=== PATIENT | female | born 1975 | race Caucasian/White ===

== ENCOUNTER 2018-09-16 20:26 | Emergency (ER) | payer MEDICARE, OTHER, SELFPAY ==
[2018-09-16 20:30] VITALS: BP 126/84; PULSE 79; RESP 12; TEMP 36.4; O2SAT 97
--- NOTE | 2018-09-16 20:40 | DI.RAD.S_ITS ---
PROCEDURE: XR CHEST 1V INDICATIONS: chest pain TECHNIQUE: One view of the chest was acquired. COMPARISON: [facility], , CHEST 1 VIEW, 04/29/2016, 17:58. FINDINGS: Surgical changes and devices: Right chest port catheter tip projects over the superior vena cava. Multiple monitoring leads project over the chest. Lungs and pleura: No pleural effusions or pneumothorax. Lungs are clear. Mediastinum: Mediastinal contours appear normal. Heart size is normal. Bones and chest wall: No suspicious bony lesions. Overlying soft tissues appear unremarkable. IMPRESSION: No acute cardiopulmonary disease. Dictated by: Hilton Ramos M.D. on 09/16/2018 at 21:21 Approved by: Hilton Ramos M.D. on 09/16/2018 at 21:25
[2018-09-16 21:00] VITALS: BP 125/94; PULSE 79; RESP 18
--- NOTE | 2018-09-16 21:01 | ED.CHESTPAIN ---
HPI - Chest Pain General Chief Complaint: Chest Pain Stated Complaint: CHEST PAIN, SHORT OF BREATH Time Seen by Provider: 09/16/18 21:01 Source: patient Mode of arrival: ambulatory Limitations: no limitations History of Present Illness HPI narrative: The patient presents with left anterior chest pain. The pain is been present for 2 days. There is no radiation of pain. She has no associated dyspnea. She developed nausea and vomiting with a migraine headache 2 days ago. The chest pain started after the vomiting started. She has vomited once today. The abdominal discomfort and headache are ongoing. She gets these headaches on a recurring basis. Her headache symptoms are not atypical for her. The chest pain is new. She generally treats herself at home for the headaches with Tylenol or ibuprofen. She is also undergoing ECT therapy for PTSD. There is no headache associated with this treatment. She has not been experiencing fever or chills. She has no diarrhea with the abdominal symptoms. She has no cardiac risk factors of hyperlipidemia or diabetes. She has a history of elevated blood pressure readings, but is not being treated for hypertension. She is not a cigarette smoker. Related Data Home Medications Medication Instructions Recorded Confirmed mirtazapine 15 mg PO #0 10/09/16 Previous Rx's Medication Instructions Recorded ondansetron [Zofran ODT] 4 mg SUBLINGUAL Q6HP PRN #6 odt 10/09/16 zolpidem [Ambien] 10 mg PO HS PRN #7 tab 10/03/17 ondansetron 4 mg PO Q4H PRN #20 tab 09/16/18 Allergies Allergy/AdvReac Type Severity Reaction Status Date / Time influenza A (H1N1) virus Allergy Severe ANAPHYLAXIS Verified 09/16/18 20:37 vaccine m-mathew-split 2008 [From influenza A (H1N1)] ketorolac Allergy Mild SOB, RASH Verified 09/16/18 20:37 metoclopramide Allergy Mild SOB, RASH Verified 09/16/18 20:37 feathers [FEATHERS] Allergy Unknown Verified 09/16/18 20:37 Review of Systems Review of Systems All systems reviewed & are unremarkable except as noted in HPI and below Constitutional Denies chills, Denies fever(s), Reports headache(s), Denies lethargy, Denies night sweats and Denies weakness Eyes Denies change in vision, Denies eye discharge, Denies irritation, Denies loss of vision and Reports photophobia ENT Ears, Nose, Mouth, and Throat: Denies vertigo, Denies dizziness and Reports headache(s) Cardiovascular Reports chest pain (Left anterior chest discomfort), Denies irregular heart rhythm, Denies lightheadedness, Denies palpitations, Denies dyspnea, Denies dyspnea on exertion and Denies orthopnea Respiratory Denies cough, Denies dyspnea, Denies dyspnea on exertion and Denies wheezing Gastrointestinal Gastrointestinal: Denies abdominal pain, Denies change in bowel habits, Denies diarrhea, Reports nausea and Reports vomiting Genitourinary Denies dysuria and Reports other (Her LMP was 2 weeks ago and was normal.) Musculoskeletal Denies back pain, Denies myalgias, Denies muscle weakness, Denies numbness and Denies tingling Integumentary/Breasts Denies erythema, Denies rash and Denies wounds Neurologic Denies confusion, Denies vertigo, Denies dizziness, Reports headache(s), Denies focal weakness, Denies loss of vision, Denies numbness, Denies tingling and Denies weakness Psychiatric Denies confusion Endocrine Denies palpitations Allergic/Immunologic Denies wheezing [facility] Social History Smoking Status: Never smoker Exam Initial Vital Signs Initial Vital Signs: Vital Signs Temperature 97.5 F L 09/16/18 20:30 Pulse Rate 79 09/16/18 20:30 Respiratory Rate 12 09/16/18 20:30 Blood Pressure 126/84 09/16/18 20:30 Pulse Oximetry 97 09/16/18 20:30 Const General: cooperative, healthy appearing, comfortable and well developed Nutritional Appearance: well nourished Orientation: alert, awake, oriented x3 and not confused [facility] Head: normal to inspection, normocephalic and atraumatic Ears: external ears normal and TM's normal bilaterally Nose: external nose normal and No nasal discharge Face and sinus: sinuses nontender, face symmetric, no sinus tenderness and No dry mucous membranes Mouth: oral mucosae normal and moist mucous membranes Teeth and gingiva: dentition normal Throat: tonsils normal and uvula midline Eyes General: appearance normal, both eyes and all related structures Alignment and Position: other (No photophobia at this moment) Eyelids: eyelids normal Conjunctivae: conjunctivae normal Sclera: sclerae normal Pupils: PERRL EOM: EOM intact bilaterally Neck Neck: full ROM and no meningeal signs Chest Chest: normal inspection of the chest and tenderness (In the left upper chest wall, consistent with her chief complaint of chest pain) Resp Effort & Inspection: normal respiratory effort and able to speak in complete sentences Auscultation: clear to auscultation bilaterally, no rales, no rhonchi and no wheezes Cardio Rate: regular rate Rhythm: regular rhythm Heart Sounds: no click, no gallops, no murmurs and no rubs Pulses: normal peripheral pulses GI Inspection: non-distended Palpation: soft, no hepatosplenomegaly, No guarding, No pulsatile mass and tender (Mild epigastric discomfort with palpation) Auscultation: normal bowel sounds Back/Spine/Pelvis Back: No CVA tenderness Skin General: no rashes or lesions noted Neuro General: alert, oriented x3, gait normal and no focal motor deficits Speech: speech normal Extrem General: full ROM, no pedal edema and no calf tenderness Psych Appearance: well kempt Mental Status: mental status grossly normal Attitude: cooperative Thought Content: normal and suicidality Judgment: judgment good Course Orders Ordered: ED Orders 09/16/18 20:40 XR chest 1V Stat EKG-12 Lead Stat 09/16/18 21:06 Complete Blood Count AUTO DIFF Stat Comprehensive Metabolic Panel Stat Lipase Stat Partial Thromboplastin Time Stat Prothrombin Time INR Stat Troponin & CK Cardiac Panel Stat Sodium Chloride (Normal Saline 0.9%) 1,000 mls @ 1,000 mls/hr IV BOLUS PRN PRN Reason: Fluid replacement Last Admin: 09/16/18 21:38 Dose: 1,000 mls/hr Discontinued Medications Hydromorphone HCl (Dilaudid) 1 mg IV NOW ONE Stop: 09/16/18 21:12 Last Admin: 09/16/18 21:39 Dose: 1 mg Ondansetron HCl (Zofran) 4 mg IV NOW ONE Stop: 09/16/18 21:12 Last Admin: 09/16/18 21:39 Dose: 4 mg Ondansetron HCl (Zofran Odt Prepack) 1 bottle MISC SEEINSTR ONE Stop: 09/16/18 22:37 Last Admin: 09/16/18 22:45 Dose: 1 bottle Vital Signs - 8 hr 09/16/18 20:30 09/16/18 21:00 09/16/18 21:30 Temperature 97.5 F L Pulse Rate 79 79 68 Respiratory Rate 12 18 19 Blood Pressure 126/84 Blood Pressure [Left Arm] 125/94 H 111/71 Pulse Oximetry 97 95 MDM - Chest Pain Medical Records Data Attestation: I reviewed the patient's medical records. Lab Data Attestation: I reviewed the patient's lab results. Result diagrams: 09/16/18 21:06 09/16/18 21:06 Lab Results 09/16/18 09/16/18 09/16/18 Range/Units 21: 21:06 21:06 WBC 6.0 (4.5-11.0) X10^3/uL RBC 4.24 (4.0-5.2) X10^6/uL Hgb 12.3 (12.0-16.0) g/dL Hct 36.1 (36-46) % MCV 85.1 (80-100) fL MCH 28.9 (26-34) PG MCHC 34.0 (30-36) % RDW 13.4 (11.6-14.8) % Plt Count 216 (150-400) X10^3/uL Neut % (Auto) 53.3 (50-75) % Lymph % (Auto) 35.7 (25-40) % [place] % (Auto) 8.2 (3-14) % Eos % (Auto) 1.6 L (2-4) % Baso % (Auto) 1.2 (0-2) % Neut # (Auto) 3200 (2195-5446) /uL PT 11.1 (10.1-12.7) SECONDS INR 1.0 (0.9-1.3) APTT 59 H (26.4-36.2) SECONDS Sodium 143 (137-145) mmol/L Potassium 3.4 (3.4-5.1) mmol/L Chloride 104 (98-107) mmol/L Carbon Dioxide 24 (22-32) mmol/L BUN 4 L (7-17) mg/dL Creatinine 0.70 (0.52-1.04) mg/dL Estimated GFR > 60.0 (>60) mL/min BUN/Creatinine Ratio 5.7 L (6-22) Glucose 103 H (70-100) mg/dL Calcium 9.1 (8.4-10.2) mg/dL Total Bilirubin 0.5 (0.2-1.3) mg/dL AST 32 (14-36) IU/L ALT 43 (9-52) IU/L Alkaline Phosphatase 64 (38-126) U/L Total Creatine Kinase 48 (30-135) U/L CK-MB (CK-2) TNP CK-MB (CK-2) Rel Index TNP Troponin I < 0.012 (0.01-0.034) ng/mL Total Protein 7.6 (6.3-8.2) g/dL Albumin 4.5 (3.5-5.0) g/dL Globulin 3.1 (1.7-4.1) g/dL Albumin/Globulin Ratio 1.5 (1.0-2.8) Lipase 41 (23-300) U/L Imaging Data Chest x-ray: Radiologist's impression: No acute cardiopulmonary process identified. ECG Data Attestation: I personally reviewed and interpreted this ECG as follows: (Normal sinus rhythm. No ectopy. Normal intervals. No acute ST or T-wave changes. Normal study.) MDM Narrative Medical decision making narrative: The patient still complains of slight headache, but chest discomfort and GI symptoms have resolved. Overall she is markedly improved. There is no evidence of cardiopulmonary disease. I suspect she has strained a chest wall muscle from the emesis that have been occurring over the last couple days. Discharge Plan Departure Patient Disposition: Home Clinical Impression: Migraine headache Instructions: Migraine -- Adult Activity Restrictions/Additional Instructions: The Motrin every 6 hr as needed for headache pain. Zofran every 4 hr as needed for nausea. Apply hot compresses to her neck to help with the headache discomfort. Recheck with your doctor within next 48 hr or return here if necessary if the headache does not resolve. Prescriptions: New ondansetron 4 mg tablet,disintegrating 4 mg PO Q4H PRN (Reason: nausea and vomiting) Qty: 20 RF: 0 No Action mirtazapine 15 MG tablet 15 mg PO Qty: 0 RF: 0 ondansetron [Zofran ODT] 4 MG tablet,disintegrating 4 mg Sublingual Q6HP PRNQty: 6 RF: 0 zolpidem [Ambien] 10 MG tablet 10 mg PO HS PRNQty: 7 RF: 0
[2018-09-16 21:12] LABS: Add Manual Diff / Slide Review NO; Basophils Percent Auto 1.2 % (0-2); Eosinophils Percent Auto 1.6 % (2-4); Hematocrit 36.1 % (36-46); Hemoglobin 12.3 g/dL (12.0-16.0); Lymphocytes Percent Auto 35.7 % (25-40); Mean Corpuscular Hemoglobin 28.9 PG (26-34); Mean Corpuscular Volume 85.1 fL (80-100); Monocytes Percent Auto 8.2 % (3-14); Neutrophils Absolute Auto 3200 /uL (3000-5900); Neutrophils Percent Auto 53.3 % (50-75); Platelet Count 216 X10^3/uL (150-400); Red Blood Cell Count 4.24 X10^6/uL (4.0-5.2); Red Cell Distribution Width 13.4 % (11.6-14.8)
[2018-09-16 21:16] LABS: Prothrombin Time 11.1 SECONDS (10.1-12.7)
[2018-09-16 21:19] LABS: PTT Partial Thromboplastin Tim 59 SECONDS (26.4-36.2)
[2018-09-16 21:20] LABS: Alanine Aminotransferase 43 IU/L (9-52); Albumin 4.5 g/dL (3.5-5.0); Albumin Globulin Ratio 1.5 (1.0-2.8); Alkaline Phosphatase 64 U/L (38-126); Aspartate Aminotransferase 32 IU/L (14-36); BUN Creatinine Ratio 5.7 (6-22); Bilirubin Total 0.5 mg/dL (0.2-1.3); Blood Urea Nitrogen 4 mg/dL (7-17); Calcium 9.1 mg/dL (8.4-10.2); Carbon Dioxide 24 mmol/L (22-32); Chloride 104 mmol/L (98-107); Creatine Kinase 48 U/L (30-135); Estimated Glomerular Filt Rate > 60.0 mL/min (>60); Globulin 3.1 g/dL (1.7-4.1); Glucose 103 mg/dL (70-100); HEMOLYSIS < 15 (0-50); Lipase 41 U/L (23-300); Potassium 3.4 mmol/L (3.4-5.1); Sodium 143 mmol/L (137-145); Total Protein 7.6 g/dL (6.3-8.2)
[2018-09-16 21:30] VITALS: BP 111/71; PULSE 68; RESP 19; O2SAT 95
[2018-09-16 21:32] LABS: Troponin I < 0.012 ng/mL (0.01-0.034)
[2018-09-16] MEDS: SODIUM CHLORIDE 0.9% 1,000 ML 1000 ML IV (21:38)
[2018-09-16] MEDS: ONDANSETRON 4 MG/2 ML INJ IV (21:39)
[2018-09-16] MEDS: HYDROMORPHONE 1 MG INJ IV (21:39)
--- NOTE | 2018-09-16 22:09 | PC.NURSE ---
patient also reports a headache for x3 days. provider aware.
[2018-09-16] MEDS: ONDANSETRON 4 MG ODT PREPACK 1 BOTTLE MISC (22:45)
[2018-09-16 22:51] VITALS: BP 133/78; PULSE 64; RESP 16; O2SAT 99
== END 2018-09-16 22:51 | disposition home or self-care (01) ==
PROVIDERS: Emergency Provider Emergency Medicine; Family Provider Family Medicine; PCP Family Medicine
DX: R07.89 Other chest pain (principal)
CPT/HCPCS: 36591; 71045; 80053; 82550; 83690; 84484; 85025; 85610; 85730; 93005; 96361; 96374; 96375; 99283; 99285; J1170; J2405

== ENCOUNTER 2024-11-13 15:34 | Emergency (ER) | payer OTHER, SELFPAY ==
[2024-11-13 15:37] VITALS: BP 165/90; PULSE 94; RESP 16; TEMP 36.4; O2SAT 99; BMI 39.6
[2024-11-13] MEDS: ONDANSETRON 4 MG ODT SL (15:46)
[2024-11-13 18:22] LABS: Bacteria Urine Occasional (0-1); Culture Indicated Urine Cult Not Indicated; RBC Urine 30-100/HPF (0-5/HPF); Squamous Epithelial Cell Urine 5-10 /HPF (0-5/HPF); Urine Volume 10mL (spun); WBC Urine 0-1/HPF (0-5/HPF)
[2024-11-13 22:10] VITALS: BP 156/90; PULSE 88; RESP 18; O2SAT 100
[2024-11-13 23:43] VITALS: PULSE 74; O2SAT 100
[2024-11-13 23:44] VITALS: BP 175/105; PULSE 75; RESP 20; O2SAT 100
--- NOTE | 2024-11-13 23:51 | ED_ITS ---
HPI - Back Pain/Injury General Chief Complaint: Back Pain/Injury Stated Complaint: lower back px radiating down legs, migraine Time Seen by Provider: 11/13/24 23:51 Source: patient History of Present Illness HPI Narrative: 49-year-old female with history of atrial fibrillation on chronic anticoagulation, prior low back pain problems, no low back surgeries, no low back steroid injections, complains of left low back pain and left gluteal pain radiating to the left posterior leg for the last 2 days. Able to ambulate but is painful to move her trunk and bend over. She does not have any numbness or tingling to the perineal perirectal region. She denies incontinence of urine and stool. She does not take anti-inflammatory medications due to chronic anticoagulation. She is taken cyclobenzaprine in the past but does not have a current supply. Tylenol not helping her pain symptoms. Related Data Home Medications Medication Instructions Recorded Confirmed mirtazapine 15 mg tablet 15 mg PO ##0 10/09/16 Previous Rx's Medication Instructions Recorded ondansetron 4 mg disintegrating 4 mg sublingual Q6HP PRN ##6 10/09/16 tablet (Zofran ODT) zolpidem 10 mg tablet (Ambien) 10 mg PO HS PRN #7 tabs 10/03/17 ondansetron 4 mg disintegrating 4 mg PO Q4H PRN nausea and 09/16/18 tablet vomiting #20 tabs cyclobenzaprine 10 mg tablet 10 mg PO TID #14 tabs 11/14/24 hydrocodone 5 mg-acetaminophen 325 1 tab PO Q6H PRN pain #14 tabs 11/14/24 mg tablet Allergies Allergy/AdvReac Type Severity Reaction Status Date / Time influenza A (H1N1) virus Allergy Severe ANAPHYLAXIS Verified 09/16/18 20:37 vaccine m-mathew-split 2008 [From influenza A (H1N1)] ketorolac Allergy Mild SOB, RASH Verified 09/16/18 20:37 metoclopramide Allergy Mild SOB, RASH Verified 09/16/18 20:37 feathers [FEATHERS] Allergy Unknown Verified 09/16/18 20:37 Patient History Social History Smoking Status: Never smoker Smoking Status: Never smoker alcohol intake frequency: 0-2 drinks per day Exam Narrative Exam Narrative: GENERAL: Well-developed patient, in mild distress. HEAD: Atraumatic. Normocephalic. EYES: Pupils equal round and reactive. Extraocular motions intact. No scleral icterus. No injection or drainage. ENT: Nose without bleeding, purulent drainage. Throat without erythema, tonsillar hypertrophy or exudate. Airway patent. NECK: Trachea midline. Non tender CARDIOVASCULAR: Regular rate and rhythm without murmurs, gallops, or rubs. RESPIRATORY: Clear to auscultation. Breath sounds equal bilaterally. No wheezes, rales, or rhonchi. GASTROINTESTINAL: Abdomen soft, non-tender, nondistended. EXTREMITIES: No edema or joint tenderness. BACK: Nontender without deformity or crepitance. No flank tenderness. Lumbar paraspinal low muscular tenderness, no midline tenderness. NEURO: AOx3. Motor functions grossly nonfocal. Straight leg raise 45? left leg, with increased buttock area discomfort. Straight leg raise 60? right leg without right-sided discomfort, some left-sided discomfort SKIN: No rash or erythema of visible areas Initial Vital Signs Initial Vital Signs: Vital Signs Temperature 97.6 F 11/13/24 15:37 Pulse Rate 94 H 11/13/24 15:37 Respiratory Rate 16 11/13/24 15:37 Blood Pressure 165/90 H 11/13/24 15:37 Pulse Oximetry 99 11/13/24 15:37 Oxygen Delivery Method Room Air 11/13/24 15:37 Course Orders Ordered: Discontinued Medications Hydrocodone Bitart/Acetaminophen (Hydrocodone/Acet 5/325 Prepack) 1 bottle MISC DIRECTED ONE Stop: 11/14/24 02:26 Last Admin: 11/14/24 02:35 Dose: 1 bottle Documented By: CHYNA Cyclobenzaprine HCl (Cyclobenzaprine 10 Mg Tablet) 10 mg PO NOW ONE Stop: 11/14/24 00:49 Last Admin: 11/14/24 00:59 Dose: 10 mg Documented By: CHYNA Cyclobenzaprine HCl (Cyclobenzaprine 10 Mg Prepack) 1 bottle MISC DIRECTED ONE Stop: 11/14/24 02:26 Last Admin: 11/14/24 02:35 Dose: 1 bottle Documented By: CHYNA Hydromorphone HCl (Hydromorphone 1 Mg Inj) 1 mg IM NOW ONE Stop: 11/14/24 00:49 Last Admin: 11/14/24 01:00 Dose: 1 mg Documented By: CHYNA Ketorolac Tromethamine (Ketorolac 30 Mg/Ml Vial) 30 mg IM NOW ONE Stop: 11/13/24 23:52 Last Admin: 11/14/24 00:14 Dose: Not Given Documented By: CHYNA Ondansetron HCl (Ondansetron 4 Mg Odt) 4 mg SL NOW ONE Stop: 11/13/24 15:44 Last Admin: 11/13/24 15:46 Dose: 4 mg Documented By: ASTRID Vital Signs Vital signs: Vital Signs - 8 hr 11/14/24 00:00 11/14/24 00:00 11/14/24 00:30 Pulse Rate 70 Blood Pressure 158/78 H 142/80 H Pulse Oximetry 100 11/14/24 00:30 11/14/24 01:00 11/14/24 01:00 Pulse Rate 67 79 Blood Pressure 190/95 H Pulse Oximetry 99 100 11/14/24 01:30 11/14/24 01:30 11/14/24 02:00 Pulse Rate 78 Blood Pressure 150/78 H 143/72 H Pulse Oximetry 99 11/14/24 02:00 11/14/24 02:20 11/14/24 02:30 Pulse Rate 69 75 Blood Pressure 185/96 H Pulse Oximetry 96 98 MDM - Back Pain/Injury Lab Data Labs: Lab Results 11/13/24 Range/Units 17:01 Urine RBC 30-100/hpf H (0-5/HPF) Urine WBC 0-1/hpf (0-5/HPF) Ur Squamous Epith Cells 5-10 /hpf H (0-5/HPF) Urine Bacteria Occasional (0-1) (None) Ur Culture Indicated? Cult not indicated Vol Urine Centrifuged 10ml (spun) Point of Care Testing Test Results Negative Urine Dip Bedside Urine Glucose Negative Bedside Urine Bilirubin - Negative Bedside Urine Ketone - Negative Urine Specific [place] 1.010 Bedside Urine Occult Blood +++ Bedside Urine pH 6.0 Bedside Urine Protein +/- 15 Bedside Urine Urobilinogen - Negative Bedside Urine Nitrite - Negative Bedside Urine Leukocytes +/- 15 Esterase MDM Narrative Medical decision making narrative: 49-year-old female with atraumatic left low back pain radiating to the sciatic groove and upper back of left thigh, consistent with left-sided sciatica. No bowel bladder incontinence symptoms, no symptoms concerning for cauda equina syndrome. Chronic anticoagulation, we will avoid NSAIDs. [id number] Tylenol not helping. Afebrile, sirs screen negative. IM Dilaudid. Oral cyclobenzaprine. Patient had improvement of symptoms. Ambulated. [facility] dispensed Flexeril, and Hydrocodone/APAP. Rx for forther muscle relaxant and [place]/APAP sent to her pharmacy. Recheck advised with PCP early next week if not improved, return precautions discussed Discharge Plan Departure Patient Disposition: Home Clinical Impression: Acute left-sided low back pain, Left sided sciatica Activity Restrictions/Additional Instructions: Left low back pain with some radiation to the left buttock area. Left-sided sciatica clinically suspected. Injection Dilaudid given, some improvement of symptoms. Oral cyclobenzaprine muscle relaxant also given, which you have tolerated well in the past. Prescription for further pain medication and muscle relaxants sent to your pharmacy. We did discuss anti-inflammatory medication such as Toradol and Motrin and also we discussed steroids, all of which could potentially inflamed your stomach, in your on chronic blood thinner medications, hold anti-inflammatory medications and steroids for now. Recheck exam and symptoms with your regular doctor early next week. Return earlier to this/nearest emergency department for any change worsening symptoms or any concerns prior Prescriptions: New cyclobenzaprine 10 mg tablet 10 mg PO TID Qty: 14 0RF hydrocodone-acetaminophen 5-325 mg tablet 1 tab PO Q6H PRN (Reason: pain) Qty: 14 0RF No Action mirtazapine 15 MG tablet 15 mg PO Qty: 0 ondansetron [Zofran ODT] 4 MG tablet,disintegrating 4 mg Sublingual Q6HP PRNQty: 6 0RF zolpidem [Ambien] 10 MG tablet 10 mg PO HS PRNQty: 7 0RF ondansetron 4 mg tablet,disintegrating 4 mg PO Q4H PRN (Reason: nausea and vomiting) Qty: 20 0RF Referrals: Shannon Bravo MD [Primary Care Provider] - Stand Alone Forms: Patient Portal/API/Survey
[2024-11-14] VITALS (7 sets, daily range): BP systolic 142–190; BP diastolic 72–96; PULSE 67–79; O2SAT 96–100
[2024-11-14] MEDS: CYCLOBENZAPRINE 10 MG TABLET PO (00:59)
[2024-11-14] MEDS: HYDROMORPHONE 1 MG INJ IM (01:00)
[2024-11-14] MEDS: CYCLOBENZAPRINE 10 MG PREPACK 1 BOTTLE MISC (02:35)
[2024-11-14] MEDS: HYDROCODONE/ACET 5/325 PREPACK 1 BOTTLE MISC (02:35)
== END 2024-11-14 02:49 | disposition home or self-care (01) ==
PROVIDERS: Emergency Provider Emergency Medicine; Family Provider Family Medicine; PCP Family Medicine
DX: M54.42 Lumbago with sciatica, left side (principal)
CPT/HCPCS: 81003; 81015; 81025; 96372; 99283; 99284; J1171